=== PATIENT | male | born 1955 | race Caucasian/White ===

== ENCOUNTER 2020-02-29 14:07 | Observation (INO) | payer OTHER ==
--- NOTE | 2020-02-29 14:22 | ERPHSYRPT ---
- History of Present Illness Time Seen by Provider: 02/29/20 14:20 Source: patient Patient Subjective Stated Complaint: Pt states "I am covid positive and I am having some trouble breathing. I think I have pneumonia. I am coughing up thick yellow whitish stuff." Triage Nursing Assessment: Pt presented alert and oriented x 3, skin pwd Pt ambulates with an upright steady gait, able to speak in clear full sentences. Pt respiratons are easy with an occasional cough. Physician History: This is a 64-year-old white male who was diagnosed positive COVID-19 approximately 2 weeks ago. Patient states that his symptoms were slowly improving but in the last few days his shortness of breath increased and he was coughing up some white-yellowish phlegm. He does not have chest pain. He has no fever. He has no abdominal pain. He has no nausea vomiting or diarrhea. He was diagnosed as an outpatient and stayed at home. 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 In addition, his son was also positive for COVID-19 virus. Timing/Duration: day(s) (Few days) Activities at Onset: none Severity of Dyspnea-Max: moderate Severity of Dyspnea-Current: moderate Possible Cause: occasional episodes Modifying Factors: Improves With: coughing, exertion (Worsen) Associated Symptoms: cough, No chest pain/discomfort, No hemoptysis Allergies/Adverse Reactions: No Known Drug Allergies Allergy (Verified 03/29/15 13:08) Home Medications: No Home Meds [No Home Meds] 0 mg PO DAILY 04/10/13 [History] Hx Tetanus, Diphtheria Vaccination/Date Given: Yes Hx Influenza Vaccination/Date Given: No Hx Pneumococcal Vaccination/Date Given: No Immunizations Up to Date: Yes Travel Risk - International Travel Have you traveled outside of the country in past 3 weeks: No - Coronavirus Screening Are you exhibiting any of the following symptoms?: Yes Symptoms: Cough: New Onset, Shortness of Breath Close contact with a COVID-19 positive Pt in past 14-21 Days: Yes - Review of Systems Constitutional: No Symptoms Eyes: No Symptoms Ears, Nose, & Throat: No Symptoms Respiratory: Cough, Dyspnea Cardiac: No Symptoms Abdominal/Gastrointestinal: No Symptoms Genitourinary Symptoms: No Symptoms Musculoskeletal: No Symptoms Skin: No Symptoms Neurological: No Symptoms Psychological: No Symptoms Endocrine: No Symptoms Hematologic/Lymphatic: No Symptoms Immunological/Allergic: No Symptoms All Other Systems: Reviewed and Negative - Past Medical History Pertinent Past Medical History: No Neurological History: No Pertinent History ENT History: No Pertinent History Cardiac History: No Pertinent History Respiratory History: No Pertinent History Endocrine Medical History: No Pertinent History Musculoskeletal History: No Pertinent History GI Medical History: No Pertinent History History: No Pertinent History Psycho-Social History: No Pertinent History Male Reproductive Disorders: No Pertinent History - Past Surgical History Past Surgical History: Yes Neuro Surgical History: No Pertinent History Cardiac: No Pertinent History Respiratory: No Pertinent History Gastrointestinal: No Pertinent History, Hernia Repair Genitourinary: No Pertinent History Musculoskeletal: No Pertinent History Male Surgical History: No Pertinent History - Social History Smoking Status: Never smoker Exposure to second hand smoke: No Drug Use: none Patient Lives Alone: No - Nursing Vital Signs Nursing Vital Signs: Initial Vital Signs Temperature 98.4 F 02/29/20 14:08 Pulse Rate 122 H 02/29/20 14:08 Respiratory Rate 22 02/29/20 14:08 Blood Pressure 149/101 02/29/20 14:08 O2 Sat by Pulse Oximetry 95 02/29/20 14:08 Pain Scale Pain Intensity 0 - Physical Exam General Appearance: no apparent distress, alert, anxiety Eye Exam: PERRL/EOMI, eyes nml inspection Ears, Nose, Throat Exam: hearing grossly normal, normal ENT inspection, normal pharynx Neck Exam: normal inspection, non-tender, supple, full range of motion Respiratory Exam: normal breath sounds, lungs clear, respiratory distress, airw ay intact (Mild), No chest tenderness Cardiovascular/Chest Exam: normal peripheral pulses, tachycardia Abdominal/Gastrointestinal Exam: soft, normal bowel sounds, No tenderness Rectal Exam: not done Extremity Exam: non-tender, normal range of motion, normal inspection Neurologic Exam: alert, oriented x 3, cooperative, 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 No comparison EKG available) Ordered Tests: Active Orders 24 hr Category Date Time Status [employer] Sprayer STAT Care 02/29/20 14:23 Active EKG-ER Only STAT Care 02/29/20 14:22 Active IV Insertion STAT Care 02/29/20 14:22 Active Pulse Oximetry (ED) STAT Care 02/29/20 14:22 Active CHEST 1 VIEW (PORTABLE) Stat Exams 02/29/20 14:23 Completed BLOOD CULTURE Stat Lab 02/29/20 14:25 Received CBC W DIFF Stat Lab 02/29/20 14:25 Completed CMP Stat Lab 02/29/20 14:25 Completed CULTURE,SPUTUM Stat Lab 02/29/20 14:23 Uncollected Lactic Acid Stat Lab 02/29/20 14:30 Completed Manual Differential NC Stat Lab 02/29/20 14:25 Completed NT PRO BNP Stat Lab 02/29/20 14:25 Completed TROPONIN Q3H Lab 02/29/20 14:25 Completed TROPONIN Q3H Lab 02/29/20 17:30 Ordered TROPONIN Q3H Lab 02/29/20 20:30 Ordered TROPONIN Q3H Lab 02/29/20 23:30 Ordered TROPONIN Q3H Lab 03/01/20 02:30 Ordered UA W/RFX UR CULTURE Stat Lab 02/29/20 15:45 Completed Respiratory Therapy Assessment ONCE RT 02/29/20 15:04 Active Transfer Order Routine Transfer 02/29/20 Ordered Medication Summary Discontinued Medications Generic Name Dose Route Start Last Admin Trade Name Freq PRN Reason Stop Dose Admin Albuterol Sulfate 2 puff 02/29/20 15:05 02/29/20 15:06 Ventolin Common Canister IH 02/29/20 15:06 2 puff STAT ONE Administration Dexamethasone Sodium Phosphate 10 mg 02/29/20 15:23 02/29/20 15:41 Decadron 10mg Inj. IV 02/29/20 15:24 10 mg STAT ONE Administration Dexamethasone Sodium Phosphate Confirm 02/29/20 15:30 Decadron 10mg Inj. Administered 02/29/20 15:31 Dose 10 mg .ROUTE .STK-MED ONE Ceftriaxone Sodium/Dextrose 1 g in 50 mls @ 100 mls/hr 02/29/20 15:22 02/29/20 16:29 Rocephin 1 Gm-D5w 50 Ml Bag IV 02/29/20 15:51 Infused STAT STA Infusion Ceftriaxone Sodium/Dextrose Confirm 02/29/20 15:30 Rocephin 1 Gm-D5w 50 Ml Bag Administered 02/29/20 15:31 Dose 1 g in 50 mls @ ud IV .STK-MED ONE Lab/Rad Data: Laboratory Result Diagrams 02/29/20 14:25 02/29/20 14:25 Laboratory Results 02/29/20 02/29/20 02/29/20 Range/Units 15:45 14:45 14:30 WBC (4.0-10.5) K/mm3 RBC (4.1-5.6) M/mm3 Hgb (12.5-18.0) gm/dl Hct (42-50) % MCV (78-100) fl MCH (26-32) pg MCHC (32-36) g/dl RDW (11.5-14.0) % Plt Count (150-450) K/mm3 MPV (7.5-11.0) fl Segmented Neutrophils (36.-66.) % Lymphocytes (Manual) (24-44) % Monocytes (Manual) (0.0-12.0) % Eosinophils (Manual) (0.00-3.0) % Platelet Estimate (NORMAL) RBC Morphology Sodium (137-145) mmol/L Potassium (3.5-5.1) mmol/L Chloride (98-107) mmol/L Carbon Dioxide (22-30) mmol/L Anion Gap (5-15) MEQ/L BUN (9-20) mg/dL Creatinine (0.66-1.25) mg/dL Estimated GFR ML/MIN Glucose (74-106) mg/dL Lactic Acid 1.9 (0.4-2.0) Calcium (8.4-10.2) mg/dL Total Bilirubin (0.2-1.3) mg/dL AST (17-59) U/L ALT (0-50) U/L Alkaline Phosphatase (38-126) U/L Troponin I (0.000-0.034) ng/mL NT-Pro-B Natriuret Pep (0-900) pg/mL Serum Total Protein (6.3-8.2) g/dL Albumin (3.5-5.0) g/dL Urine Color YELLOW (YELLOW) Urine Appearance CLEAR (CLEAR) Urine pH 6.0 (5-6) Ur Specific [place] 1.014 (1.005-1.025) Urine Protein NEGATIVE (Negative) Urine Ketones SMALL (NEGATIVE) Urine Blood NEGATIVE (0-5) [place]/ul Urine Nitrite NEGATIVE (NEGATIVE) Urine Bilirubin NEGATIVE (NEGATIVE) Urine Urobilinogen 4 (0-1) mg/dL Ur Leukocyte Esterase NEGATIVE (NEGATIVE) Urine WBC (Auto) 0-2 (0-5) /HPF Urine RBC (Auto) NONE (0-2) /HPF U Epithel Cells (Auto) NONE (FEW) /HPF Urine Bacteria (Auto) NONE (NEGATIVE) /HPF Urine Culture Reflexed NO (NO) Urine Glucose NEGATIVE (NEGATIVE) mg/dL Influenza Type A Ag NEGATIVE (NEGATIVE) Influenza Type B Ag NEGATIVE (NEGATIVE) RSV (PCR) NEGATIVE (Negative) 02/29/20 02/29/20 02/29/20 Range/Units 14:25 14:25 14:25 WBC 5.6 (4.0-10.5) K/mm3 RBC 5.10 (4.1-5.6) M/mm3 Hgb 15.1 (12.5-18.0) gm/dl Hct 43.7 (42-50) % MCV 85.7 (78-100) fl MCH 29.6 (26-32) pg MCHC 34.6 (32-36) g/dl RDW 12.3 (11.5-14.0) % Plt Count 358 (150-450) K/mm3 MPV 9.0 (7.5-11.0) fl Segmented Neutrophils 61 (36.-66.) % Lymphocytes (Manual) 22 L (24-44) % Monocytes (Manual) 15 H (0.0-12.0) % Eosinophils (Manual) 2 (0.00-3.0) % Platelet Estimate NORMAL (NORMAL) RBC Morphology NORMAL Sodium 136 L (137-145) mmol/L Potassium 3.4 L (3.5-5.1) mmol/L Chloride 101 (98-107) mmol/L Carbon Dioxide 25 (22-30) mmol/L Anion Gap 14.2 (5-15) MEQ/L BUN 15 (9-20) mg/dL Creatinine 1.01 (0.66-1.25) mg/dL Estimated GFR > 60.0 ML/MIN Glucose 101 (74-106) mg/dL Lactic Acid (0.4-2.0) Calcium 9.5 (8.4-10.2) mg/dL Total Bilirubin 1.20 (0.2-1.3) mg/dL AST 45 (17-59) U/L ALT 30 (0-50) U/L Alkaline Phosphatase 90 (38-126) U/L Troponin I < 0.012 (0.000-0.034) ng/mL NT-Pro-B Natriuret Pep 111 (0-900) pg/mL Serum Total Protein 8.0 (6.3-8.2) g/dL Albumin 4.0 (3.5-5.0) g/dL Urine Color (YELLOW) Urine Appearance (CLEAR) Urine pH (5-6) Ur Specific [place] (1.005-1.025) Urine Protein (Negative) Urine Ketones (NEGATIVE) Urine Blood (0-5) [place]/ul Urine Nitrite (NEGATIVE) Urine Bilirubin (NEGATIVE) Urine Urobilinogen (0-1) mg/dL Ur Leukocyte Esterase (NEGATIVE) Urine WBC (Auto) (0-5) /HPF Urine RBC (Auto) (0-2) /HPF U Epithel Cells (Auto) (FEW) /HPF Urine Bacteria (Auto) (NEGATIVE) /HPF Urine Culture Reflexed (NO) Urine Glucose (NEGATIVE) mg/dL Influenza Type A Ag (NEGATIVE) Influenza Type B Ag (NEGATIVE) RSV (PCR) (Negative) - Progress Progress: improved, re-examined Air Movement: good Progress Note: 02/29/20 15:24 Chest x-ray shows new bilateral patchy airspace disease without consolidation or large effusion present. 02/29/20 16:[address] Treviño. 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 I reviewed the patient history, condition, laboratory results and x-ray results. He accepts the patient for admission. Blood Culture(s) Obtained: Yes Antibiotics given: Yes Counseled pt/family regarding: lab results, diagnosis, rad results - Departure Departure Disposition: In-patient Admission Clinical Impression: Bilateral pulmonary infiltrates on chest x-ray, Lab test positive for detection of COVID-19 virus Condition: Stable Critical Care Time: No Referrals: AKANKSHA HINTON NP [Primary Care Provider] -
[2020-02-29 14:54] LABS: Hematocrit 43.7 % (42-50); Hemoglobin 15.1 gm/dl (12.5-18.0); Mean Cell Volume 85.7 fl (78-100); Mean Corpuscular Hemoglobin 29.6 pg (26-32); Mean Corpuscular Hgb Concent. 34.6 g/dl (32-36); Platelet Count 358 K/mm3 (150-450); Red Cell Distribution Width 12.3 % (11.5-14.0); White Blood Count 5.6 K/mm3 (4.0-10.5)
[2020-02-29] MEDS ORDERED: VENTOLIN COMMON CANISTER IH ONE ×2 (15:05→15:06)
--- NOTE | 2020-02-29 15:14 | XRAY ---
Indication: Cough and short of breath. Suspect Covid 19. Comparison: December 18, 2019. Portable chest demonstrates new bilateral patchy airspace disease without consolidation/large effusion. Heart is not enlarged. Bony thorax intact again with mild degenerative changes.
[2020-02-29 15:22] LABS: ALKALINE PHOSPHATASE 90 U/L (38-126); ANION GAP 14.2 MEQ/L (5-15); BLOOD UREA NITROGEN 15 mg/dL (9-20); CHLORIDE 101 mmol/L (98-107); Calcium 9.5 mg/dL (8.4-10.2); Carbon Dioxide 25 mmol/L (22-30); Creatinine 1 1.01 mg/dL (0.66-1.25); EST GLOMERULAR FILTRATION RATE > 60.0 ML/MIN; Glucose 101 mg/dL (74-106); NT PRO BNP 111 pg/mL (0-900); Potassium 3.4 mmol/L (3.5-5.1); SGOT/AST 45 U/L (17-59); SGPT/ALT 30 U/L (0-50); SODIUM 136 mmol/L (137-145)
[2020-02-29] MEDS ORDERED: ROCEPHIN 1 Gm-D5w 50 ml Bag** 1 G/50 ML IVPB IV STA (15:22)
[2020-02-29] MEDS ORDERED: DECADRON 10MG INJ. IV ONE (15:23)
[2020-02-29 15:24] LABS: INFLUENZA A NEGATIVE (NEGATIVE); INFLUENZA B NEGATIVE (NEGATIVE); RESPIRATORY SYNCTIAL VIRUS NEGATIVE (Negative)
[2020-02-29] MEDS ORDERED: DECADRON 10MG INJ. ONE (15:30)
[2020-02-29] MEDS ORDERED: ROCEPHIN 1 Gm-D5w 50 ml Bag** 1 G/50 ML IVPB IV ONE (15:30)
[2020-02-29 15:33] LABS: Eosinophil 2 % (0.00-3.0); Lymphocytes 22 % (24-44); Monocyte 15 % (0.0-12.0); Neutrophils 61 % (36.-66.); Platelet Estimate NORMAL (NORMAL); Total Cells Counted 100
[2020-02-29 16:03] LABS: Appearance CLEAR (CLEAR); Bilirubin NEGATIVE (NEGATIVE); Blood NEGATIVE Ery/ul (0-5); Glucose NEGATIVE (NEGATIVE); Ketones SMALL (NEGATIVE); Leukocyte Esterase NEGATIVE (NEGATIVE); Nitrite NEGATIVE (NEGATIVE); Protein,Urine Dip NEGATIVE (Negative); Specific Gravity 1.014 (1.005-1.025); Urobilinogen 4 mg/dL (0-1); WBC 0-2 /HPF (0-5)
[2020-02-29] MEDS ORDERED: TYLENOL 325 MG PO PRN (17:34)
[2020-02-29] MEDS ORDERED: Sodium Chloride 0.9% 1000 ML 1,000 ML IV SCH (17:34)
[2020-02-29] MEDS: ENOXAPARIN SODIUM SQ SCH (22:31)
[2020-03-01 05:21] LABS: Hematocrit 41.7 % (42-50); Hemoglobin 13.9 gm/dl (12.5-18.0); Mean Cell Volume 87.2 fl (78-100); Mean Corpuscular Hemoglobin 29.1 pg (26-32); Mean Corpuscular Hgb Concent. 33.3 g/dl (32-36); Mean Platelet Volume 8.9 fl (7.5-11.0); Platelet Count 349 K/mm3 (150-450); Red Blood Count 4.78 M/mm3 (4.1-5.6); Red Cell Distribution Width 12.4 % (11.5-14.0); White Blood Count 5.3 K/mm3 (4.0-10.5)
[2020-03-01 05:40] LABS: ALBUMIN 3.6 g/dL (3.5-5.0); ALKALINE PHOSPHATASE 71 U/L (38-126); ANION GAP 12.8 MEQ/L (5-15); BLOOD UREA NITROGEN 18 mg/dL (9-20); CHLORIDE 104 mmol/L (98-107); Carbon Dioxide 25 mmol/L (22-30); Creatinine 1 0.95 mg/dL (0.66-1.25); EST GLOMERULAR FILTRATION RATE > 60.0 ML/MIN; Glucose 125 mg/dL (74-106); Potassium 4.5 mmol/L (3.5-5.1); SGOT/AST 30 U/L (17-59); SGPT/ALT 32 U/L (0-50); SODIUM 138 mmol/L (137-145); Total Protein 7.3 g/dL (6.3-8.2)
--- NOTE | 2020-03-01 08:06 | HP ---
AMENDED REPORT: CHIEF COMPLAINT: Productive cough, shortness of breath, history of COVID two weeks ago. 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 Son and [id number] had COVID. He started feeling worse today. He came in. He was diagnosed two weeks ago and had actually not returned to work. His had it and she has returned to work. He had some blood work negative for influenza. COVID test is pending. White count was 5.6 on 10/06/2019. UA was normal. He was afebrile. Blood sugar 100. Electrolytes normal. His cardiac enzymes are normal. His D-dimer was markedly elevated. Lactic acid normal at 1.9. MEDICATIONS: None. ALLERGIES: NKDA. SOCIAL HISTORY: He lives with his . Works as above. He does not smoke or drink. PHYSICAL EXAMINATION: He is a very healthy, strong looking gentleman, 64 year white male who is coughing some. He is in no distress. HEENT: Pupils equal and reactive to light. NECK: Supple without adenopathy. CHEST: Few crackles up on the right. CVS: No murmurs or gallops. ABDOMEN: Soft. No masses or organomegaly. EXTREMITIES: Good pulses. No edema. Good strength. LAB DATA AND TESTS: Chest x-ray bilateral patchy airspace disease without consolidation or effusion, comparison to 12/18/2019 just six weeks ago. IMPRESSION: Viral pneumonia, looks like COVID pneumonia though he tested a long time ago positive approximately 14 days he told me. History of COVID, probable COVID pneumonia late onset. PLAN: Will treat him with Decadron. He was started on some broad spectrum antibiotics and given one dose and re-evaluate in the morning. We put him on Lovenox 60 subcu every 24 hours, repeat CBC and see what his testing shows for COVID.
[2020-03-01 08:18] VITALS: O2SAT 92
[2020-03-01 08:29] LABS: Lymphocytes 13 % (24-44); Monocyte 7 % (0.0-12.0); Neutrophils 80 % (36.-66.); Platelet Estimate NORMAL (NORMAL); Total Cells Counted 100
[2020-03-01 08:48] VITALS: BP 129/69
[2020-03-01] MEDS: ENOXAPARIN SODIUM SQ SCH (09:04)
[2020-03-01 11:47] VITALS: PULSE 89
== END 2020-03-01 13:30 | disposition home or self-care (01) ==
LOC: ED 14:07 → MED SURG 17:18 → INTOOBSV 17:18
PROVIDERS: ADMIT Family Medicine; ATTEND Family Medicine
DX: U07.1 COVID-19 (principal); J12.89 Other viral pneumonia
CPT/HCPCS: 36000; 36415; 71045; 80053; 81001; 83605; 83880; 84484; 85025; 87040; 87070; 87631; 93005; 93041; 93268; 94640; 94760; 94762; 96365; 96374; 99285; G0378; J0696; J1100; J1650; A9270-GY